=== PATIENT | male | born 1975 | race Caucasian/White ===

== ENCOUNTER 2017-02-10 16:48 | Emergency (ER) | payer SELFPAY ==
[2017-02-10 21:39] LABS: BASOPHILS 0.5 % (0.0-2.0); EOSINOPHILS 3.5 % (0-7); HEMATOCRIT 35.7 % (42.0-54.0); IMMATURE GRANULOCYTES 0.4 % (0-5); MCH 27.1 pg (26.0-34.0); MCHC 30.8 g/dL (31.0-37.0); MCV 87.9 fL (80.0-100.0); MEAN PLATELET VOLUME 11.2 fL (7.4-10.4); MONOCYTES 6.9 % (2-11); NEUTROPHILS 69.7 % (40-80); PLATELET COUNT 236 10x3/uL (130-400); RBC 4.06 10x6/uL (4.20-6.10); RDW 16.8 % (11.5-14.5); WBC 9.2 10x3/uL (4.8-10.8)
[2017-02-10 21:48] LABS: ALBUMIN 2.9 g/dL (3.4-5.0); ALKALINE PHOSPHATASE 86 U/L (46-116); ALT (SGPT) 36 U/L (10-68); BILIRUBIN - TOTAL 0.37 mg/dL (0.2-1.3); CALC OSMOLALITY 279 mosm/kg (275-300); CALCIUM 8.4 mg/dL (8.5-10.1); CARBON DIOXIDE 30.8 mmol/L (21.0-32.0); CHLORIDE - SERUM 103 mmol/L (98-107); GLUCOSE 127 mg/dL (74-106); POTASSIUM - SERUM 3.9 mmol/L (3.5-5.1); PROTEIN - SERUM 8.9 g/dL (6.4-8.2); SODIUM 139 mmol/L (136-145); UREA NITROGEN 12 mg/dL (7-18); eGFR NON AFRICAN AMERICAN 87 mL/min (90-120)
== END 2017-02-10 21:55 | disposition home or self-care (01) ==
LOC: D.ER 16:48
PROVIDERS: Surgery
DX: N49.2 Inflammatory disorders of scrotum (principal); N50.82 Scrotal pain; F41.9 Anxiety disorder, unspecified; F17.200 Nicotine dependence, unspecified, uncomplicated

== ENCOUNTER 2018-12-02 17:30 | Inpatient (IN) | payer MEDICAID ==
[~2018-12-02] VITALS: Ht 185.4 cm; Wt 209.8 kg
[2018-12-02] VITALS (10 sets, daily range): BP systolic 147–184; BP diastolic 74–114
[2018-12-02] MEDS ORDERED: COREG12.5 MG PO (17:36)
[2018-12-02] MEDS ORDERED: BUMEX2 MG PO (17:36)
[2018-12-02] MEDS ORDERED: MYCELEX TROCHE10 MG PO (17:37)
[2018-12-02] MEDS ORDERED: K-DUR20 MEQ PO (17:38)
[2018-12-02] MEDS ORDERED: ENTRESTO 24 MG1 EACH PO (17:38)
[2018-12-02] MEDS ORDERED: ALDACTONE25 MG PO (17:39)
[2018-12-02 18:15] LABS: APPEARANCE CLEAR (CLEAR); COLOR STRAW (YELLOW); SPECIFIC GRAVITY 1.015 (1.005-1.020)
--- NOTE | 2018-12-02 18:15 | NUR ---
ERP AT BEDSIDE EVALUATING PT WHEN PT HEART RATE DROPPED TO 30'S. PT PLACED ON QUICK PADS. NARCAN X 2 ADMINISTERED. PT HEART RATE INCREASED TO 70'S. PT C/O OXYGEN IN NOSE. PT QUICKLY FALLS BACK TO SLEEP. BREATHING CURRENTLY WITH OBSERVED PERIODS OF APNEA. AROUSES TO DEEP STIMULI.
[2018-12-02 18:16] LABS: BILIRUBIN NEGATIVE (NEGATIVE); GLUCOSE NEGATIVE (NEGATIVE); KETONE NEGATIVE (NEGATIVE); NITRITE NEGATIVE (NEGATIVE); PROTEIN NEGATIVE (NEGATIVE); UROBILINOGEN NORMAL (NORMAL)
[2018-12-02 18:31] LABS: BASOPHILS 0.3 % (0-2); EOSINOPHILS 2.8 % (0-7); HEMOGLOBIN 12.2 g/dL (13.5-17.5); IMMATURE GRANULOCYTES 0.4 % (0-5); MCH 27.9 pg (26.0-34.0); MCHC 31.3 g/dL (31.0-37.0); MEAN PLATELET VOLUME 11.6 fL (7.4-10.4); MONOCYTES 7.2 % (2-11); NEUTROPHILS 68.3 % (40-80); PLATELET COUNT 226 10x3/uL (130-400); RBC 4.38 10x6/uL (4.20-6.10); RDW 16.3 % (11.5-14.5); WBC 9.9 10x3/uL (4.8-10.8)
[2018-12-02 18:39] LABS: INR 1.1 (0.85-1.17); PROTIME 13.7 SECONDS (11.6-15.0)
[2018-12-02 18:54] LABS: UDS - AMPHET POSITIVE QUAL (NEGATIVE); UDS - BARB NEGATIVE QUAL (NEGATIVE); UDS - BENZO NEGATIVE QUAL (NEGATIVE); UDS - COCAINE NEGATIVE QUAL (NEGATIVE); UDS - OPIATE NEGATIVE QUAL (NEGATIVE); UDS - PCP NEGATIVE QUAL (NEGATIVE); UDS - THC NEGATIVE QUAL (NEGATIVE)
[2018-12-02 19:01] LABS: ALBUMIN 2.9 g/dL (3.4-5.0); ALKALINE PHOSPHATASE 86 U/L (46-116); ALT (SGPT) 76 U/L (10-68); CALC OSMOLALITY 282 mosm/kg (275-300); CALCIUM 8.7 mg/dL (8.5-10.1); CARBON DIOXIDE 28.6 mmol/L (21.0-32.0); CHLORIDE - SERUM 102 mmol/L (98-107); CREATININE - SERUM 0.9 mg/dL (0.6-1.3); GLUCOSE 124 mg/dL (74-106); POTASSIUM - SERUM 3.8 mmol/L (3.5-5.1); PROTEIN - SERUM 9.3 g/dL (6.4-8.2); SODIUM 140 mmol/L (136-145); UREA NITROGEN 21 mg/dL (7-18); eGFR NON AFRICAN AMERICAN > 90 mL/min (90-120)
[2018-12-02 19:12] LABS: CKMB 1.9 U/L (0.0-3.6); CREATINE KINASE 318 UL (21-232); MAGNESIUM - SERUM 1.9 mg/dL (1.8-2.4); THYROID STIMULATING HORMONE 2.39 uIU/mL (0.36-3.74)
[2018-12-02 19:19] LABS: TROPONIN-I 0.069 ng/mL (0.000-0.060)
--- NOTE | 2018-12-02 20:50 | NUR ---
PT PULLED IV OUT AT THIS TIME PT IS DIFFICULT STICK
--- NOTE | 2018-12-02 22:20 | NUR ---
PT ABLE TO STAND AT SIDE OF BED AND USE URINAL PT ALERT AND ORIENTED X 3 BUT WHEN HE LAID BACK DOWN WENT RIGHT BACK TO SLEEP. OUTPUT OF 500ML YELLOW URINE AWARE
--- NOTE | 2018-12-02 22:26 | NUR ---
UA SENT TO LAB
--- NOTE | 2018-12-02 22:30 | NUR ---
PT GIRL FRIEND AT BEDSIDE YELLING AT STAFF. MD CALLED TO BEDSIDE. PT STATES THAT SHE PUT HIS WALLET ON HIS CHEST HE WAS LEAVING WITH EMS. PT DOES NOT HAVE WALLET. PT DOES HAVE PHONE WITH MONEY SLEEVE ON THE BACK WITH CARDS. PT STATES IT IS OK TO GIVE GIRL FRIEND HIS PHONE TO TAKE HOME.
--- NOTE | 2018-12-02 23:12 | NUR ---
EMS AT [facility] [place] [place] CALLED BACK STATES THAT PT DIDNT HAVE A WALLET JUST A PHONE PT GIRL FRIEND INFORMED.
[2018-12-03] VITALS (29 sets, daily range): BP systolic 95–171; BP diastolic 33–128; Ht 185.4 cm; Wt 209.8 kg
--- NOTE | 2018-12-03 00:30 | NUR ---
PT AROUSABLE BY PAINFUL STIMULI AND THEN GOES RIGHT BACK TO SLEEP. PT C/O BEING VERY TIRED WHEN AWAKE.
--- NOTE | 2018-12-03 01:30 | NUR ---
PT RESTING EYES CLOSED RESP EVEN AND UNLABORED. PT ON MUFFLER MECHANIC AND WILL CONTINUE TO MONITOR
--- NOTE | 2018-12-03 01:52 | NUR ---
RECIEVED PT FROM [facility] CAD INTERN [place], PT LETHARGIC, ABLE TO AROUSE WITH PHYSICAL STEMULI, PT ON NC @2 L/MIN, COPELAND CATH TO GRAVITY, 20g PIV IN LEFT SHOLDER SALINE LOCK, 20gPIV IN LT WRIST SALINE LOCK, PATENT, DRSG CDI PLACED ON ICU MONITOR, SINUS RHYTHM WITH FREQUENT PVC'S, B/P ELEVATED, OTHER VS WNL, SCROTUM ENLARGED AND TENDER TO TOUCH, PENIS NOT VISIABLE AND RETRACTED, SHERINE AREA HAS SORES/WOUNDS, BILAT LOWER EXTREMITIES FROM KNEE TO FEET RED, PPP IN ALL EXTREMITIES. PT OBESE IN SIZE, WILL CONTINUE TO ASSESS
--- NOTE | 2018-12-03 02:30 | NUR ---
PT INCREASINGLY LETHARGIC AND UNABLE TO ANSWER QUESTIONS SLURRED/GARBLED SPEACH, PLACED ON BIPAP @30% OXYGEN, SPO2 OF 98%, B/P ELEVATED, NSR WITH PVC'S FREQUENTLY, HR 96bpm, PT HAS OCCASIONAL NON-PRODUCTIVE COUGH, PT GETTING SLIGHTLY AGGITATED FROM BEING WOKEN UP, REORRIENTED PT TO SITUATION AND ATTEMPT TO CALM AGGITATION, PT QUICKLY FALLS BACK ASLEEP. WILL CONTINUE TO ASSESS, COPELAND TUBING FROM CONNECTOR TO COLLECTION BAG REPLACED D/T LEAK FROM PORT, REATTACHED STAT LOCK TO LEG, VOID PATENT TO COPELAND BAG
[2018-12-03 05:00] LABS: BASOPHILS 0.3 % (0-2); EOSINOPHILS 2.8 % (0-7); HEMATOCRIT 35.2 % (42.0-54.0); IMMATURE GRANULOCYTES 0.4 % (0-5); LYMPHOCYTES 15.4 % (15-50); MCH 27.8 pg (26.0-34.0); MCHC 31.3 g/dL (31.0-37.0); MCV 89.1 fL (80.0-100.0); MEAN PLATELET VOLUME 11.9 fL (7.4-10.4); NEUTROPHILS 71.1 % (40-80); PLATELET COUNT 241 10x3/uL (130-400); RBC 3.95 10x6/uL (4.20-6.10); RDW 16.4 % (11.5-14.5); WBC 10.4 10x3/uL (4.8-10.8)
[2018-12-03 05:24] LABS: CALC OSMOLALITY 276 mosm/kg (275-300); CARBON DIOXIDE 28.9 mmol/L (21.0-32.0); CHLORIDE - SERUM 101 mmol/L (98-107); CREATININE - SERUM 0.9 mg/dL (0.6-1.3); GLUCOSE 105 mg/dL (74-106); MAGNESIUM - SERUM 1.5 mg/dL (1.8-2.4); PHOSPHOROUS 3.2 mg/dL (2.5-4.9); POTASSIUM - SERUM 3.8 mmol/L (3.5-5.1); SODIUM 138 mmol/L (136-145); UREA NITROGEN 16 mg/dL (7-18); eGFR NON AFRICAN AMERICAN > 90 mL/min (90-120)
--- NOTE | 2018-12-03 06:23 | NUR ---
DR.SANSON HARRIS, JAZMYN ALMODOVAR APN CALLED BACK, UPDATE GIVEN ON PT, INFORMED OF LABS, ALSO PT REQUESTED PAIN MED FOR UPPER TOOTH ON RT SIDE, JAZMYN STATED SHE IS UNABLE TO PROVIDE PAIN MED D/T ADMIT WITH AMS, ORDERS FOR ELECTROLYTE REPLACEMENT PROTOCOL RECEIVED, PT AAOx4 VSS, NSR WITH FREQUENT PVC'S ON CM, WILL CONTINUE TO ASSESS
[2018-12-03 07:00] LABS: VANCOMYCIN - RANDOM 6.8 ug/mL (10.0-20.0)
--- NOTE | 2018-12-03 07:00 | NUR ---
REPORT GIVEN TO DAY SHIFT RN,
--- NOTE | 2018-12-03 07:00 | NUR ---
PATIENT RESTING IN BED. BP, HR, AND O2 SAT ARE STABLE. PATIENT ON 4L O2 HIGH FLOW NC. TELEMETRY READS FREQUENT PVCS WITH OCCASIONAL RUNS OF TRIGEMINY AND BIGEMINY. ELECTROLYTE PROTOCOL BEING FOLLOWED PER NEEDS. PT AWAKE AND ALERT WHEN SPOKEN TO BUT FALLS ALSEEP FAST. ABLE TO SPEAK CLEARLY AND ANSWER QUESTIONS, THOUGH EASILY AGITATED. COPELAND CATH IN PLACE DRAINING CLEAR YELLOW CONCENTRATED URINE. SCROTUM IS VERY SWOLLEN ALONG WITH WHOLE SHERINE AREA--ALSO APPEARS INFLAMED. 20 GUAGE PIV TO LEFT WRIST AND LEFT SHOULDER. ABX AND MAGNESIUM INFUSING VIA LEFT WRIST. NURSE FLUSHED LEFT SHOULDER IV. SCD HOSE INTACT. WILL CONTINUE TO MONITOR.
[2018-12-03 07:03] LABS: TROPONIN-I 0.075 ng/mL (0.000-0.060)
--- NOTE | 2018-12-03 07:40 | NUR ---
DR. ARREGUIN CAME TO SEE PATIENT. UPDATED ON WHAT OCCURRED LAST NIGHT PER NIGHT RNMONIE. ORDERS FOR CARDIOLOGY CONSULT AND VERBAL ORDER FOR PULMONARY CONSULT.
--- NOTE | 2018-12-03 08:42 | NUR ---
PAGED DR. MCKINLEY FOR CONSULT--DR. JEAN-BAPTISTE NURSE CALLED BACK. EXPLAINED CARDIAC ISSUES TO NURSE AND SHE STATED SHE WILL LET HIM KNOW FOR ME.
--- NOTE | 2018-12-03 09:24 | NUR ---
SPOKE TO DR. PAULINO ON PHONE TO NOTIFY OF PATIENT CONSULT.
--- NOTE | 2018-12-03 10:00 | NUR ---
SPOKE TO PHARMACIST ABOUT VANCOMYCIN ORDER DUE AT 0900
--- NOTE | 2018-12-03 10:01 | NUR ---
Scrotum red and edmatous. No drainagae or weeping noted. Recommend elevating using sling.
--- NOTE | 2018-12-03 11:05 | NUR ---
DR. HENSLEY CAME BY TO SEE PATIENT. NO ORDERS GIVEN AT THIS TIME
--- NOTE | 2018-12-03 11:54 | NUR ---
SERVED LUNCH TRAY. PATIENT OFF BIPAP MACHINE ON NASAL CANULA AT 4L/MIN. VSS. SITTING UP IN BED EATING LUNCH. ALSO ADMINISTERED 0900 VANCOMYCIN DOSE. WILL FUTURE DOSES.
--- NOTE | 2018-12-03 13:15 | NUR ---
TOOK PATIENT TO CT OF ABDOMEN AT THIS TIME
--- NOTE | 2018-12-03 13:55 | NUR ---
GAVE PATIENT CHLORHEXADINE BATH. VSS.
--- NOTE | 2018-12-03 15:04 | NUR ---
PATIENT RESTING IN BED. CALL GARCIA IN REACH. NO COMPLAINTS. WILL CONTINUE TO MONITOR
--- NOTE | 2018-12-03 15:12 | NUR ---
PATIENTS SISTER AND CAME TO SEE PATIENT AND GAVE PASSWORD TO SET UP. UPDATED ON PATIENT STATUS AND PLAN OF CARE.
--- NOTE | 2018-12-03 15:59 | NUR ---
CHANGED ALL PATIENT LINENS AND REPOSITIONED IN BED. VSS. WILL CONTINUE TO MONITOR
--- NOTE | 2018-12-03 17:21 | MORECARE ---
CASE MANAGEMENT DISCHARGE SUMMARY PATIENT: SHRUTHI AMARO UNIT: [id number] ADM DATE: 12/02/18 AGE: 43 : 75 SEX: M ROOM/BED: D.2310 AUTHOR: HERMILO CURRY PHYSICIAN: REFERRING PHYSICIAN: SARKIS ARREGUIN MD DATE OF SERVICE: 12/03/18 Discharge Plan Patient Name: SHRUTHI AMARO Facility: [facility]:[place] : 1975 Planned Disposition: Home Anticipated Discharge Date: Discharge Date: Expected LOS: Initial Reviewer: [email or web address] Initial Review Date: 12/03/2018 Generated: 12/03/18 6:20 pm Patient Name: SHRUTHI AMARO Page [id number] at 1721 All edits/amendments must be made on the electronic document DICTATION DATE: 12/03/181719 DIETETIC TECH: LENCHO 12/03/181719 RPT#: [id number] DC DATE: STATUS: ADM IN [facility] [address] [place] [address] END OF REPORT
--- NOTE | 2018-12-03 17:28 | MORECARE ---
CASE MANAGEMENT DISCHARGE SUMMARY PATIENT: SHRUTHI AMARO UNIT: [id number] ADM DATE: 12/02/18 AGE: 43 : 75 SEX: M ROOM/BED: D.2310 AUTHOR: HERMILO CURRY PHYSICIAN: REFERRING PHYSICIAN: SARKIS ARREGUIN MD DATE OF SERVICE: 12/03/18 Discharge Plan Patient Name: SHRUTHI AMARO Facility: [facility]:[place] : 1975 Planned Disposition: Home Anticipated Discharge Date: Discharge Date: Expected LOS: Initial Reviewer: [email or web address] Initial Review Date: 12/03/2018 Generated: 12/03/18 6:28 pm Comments DCP- Discharge Planning Updated by [email or web address]: Lucia Gillis on 12/03/18 4:[address] Patient Name: SHRUTHI AMARO Admission Status: ER Accout number: [id number] Admission Date: 12-02-2018 : 1975 Admission Diagnosis: Attending: SARKIS ARREGUIN Current LOS: 1 Anticipated DC Date: Planned Disposition: Home Primary Insurance: MEDICAID [place] Discharge Planning Comments: CM met with patient at bedside after obtaining verbal consent. Patient states he plans on returning home after discharge. Patient states he lives alone. Patient very drowsy kept dozing off during interview. Patient denies any discharge needs at this time. CM will continue to follow and assist as needed for discharge planning / needs. Pastrycook'S Assistant: Lucia Gillis DCPIA - Discharge Planning Initial Assessment Updated by [email or web address]: Lucia Gillis on 12/03/18 5:21 pm * Is the patient Alert and Oriented? Yes * How many steps to enter\exit or inside your home? * PCP [facility] - [facility] * Pharmacy [facility] * Preadmission Environment Home Alone * ADLs Independent * Equipment None * List name and contact numbers for known caregivers / representatives who currently or will assist patient after discharge: SEBASTIAN MENDEZ - FATHER - ?? * Verbal permission to speak to the caregivers and representatives has been obtained from the patient. N/A * Community resources currently utilized None * Additional services required to return to the preadmission environment? No * Can the patient safely return to the preadmission environment? Yes * Has this patient been hospitalized within the prior 30 days at any hospital? No Last DP export: 12/03/18 4:21 pm Patient Name: SHRUTHI AMARO Page 11545 at 1728 All edits/amendments must be made on the electronic document DICTATION DATE: 12/03/181727 SPONGE FISHERMAN: LENCHO 12/03/181727 RPT#: [id number] DC DATE: STATUS: ADM IN [facility] [address] [place] [address] END OF REPORT
--- NOTE | 2018-12-03 18:00 | NUR ---
PATIENT IS RESTING IN BED C STABLE VITAL SIGNS. NO COMPLAINTS.
--- NOTE | 2018-12-03 19:30 | NUR ---
REPORT RECEIVED, SHIFT ASSESSMENT COMPLETED PER FLOW SHEET, ABLE TO WAKE PT WITH VERBAL STEMULI, PT AAO, DENIES PAIN, REPOSITIONED FOR COMFORT, HOB ELEVATED, NC @4L/MIN, ON ICU MONITORS, NSR WITH FREQUENT PVC'S NOTED, ALL OTHER VSS, PT REQUESTING SNACK AND WATER, 1 SANDWICH GIVEN AND LARGE CUP WATER, COPELAND CATH TO GRAVITY, 20g PIV IN LT WRIST INFUSING MEDS PER JAN, WILL CONTINUE TO ASSESS
--- NOTE | 2018-12-03 20:52 | NUR ---
MEDS GIVEN PER JAN/ORDERS, PLACED PT ON BIPAP @30% O2, PT TOLLERATING WELL, VSS, WILL CONTINUE TO ASSESS
--- NOTE | 2018-12-03 22:05 | NUR ---
FEMALE STATING SHE WAS PT'S "" CALLED UNIT, UNABLE TO PROVIDE CORRECT PASSWORD BECAME ANGRY AND RAISING VOICE, PT ASLEEP, ATTEMPTED TO WAKE PT AND HAD TO USE PAINFUL STEMULUI, PT AGGRESIVE AND WONT STAY AWAKE, INFORMED PT OF CALL ON PHONE.
[2018-12-04] VITALS (24 sets, daily range): BP systolic 89–148; BP diastolic 52–99
--- NOTE | 2018-12-04 02:19 | NUR ---
PT REMOVBED BIPAP, STATED HE DIDNT WANT TO WEAR IT ANYMORE, PLACED ON NC@ 4L/M.
--- NOTE | 2018-12-04 02:50 | NUR ---
PT PLACED BACK ON BIPAP PER PT REQUEST, DENIES NEEDS, VSS
[2018-12-04 04:42] LABS: CALC OSMOLALITY 281 mosm/kg (275-300); CALCIUM 7.9 mg/dL (8.5-10.1); CARBON DIOXIDE 31.8 mmol/L (21.0-32.0); CHLORIDE - SERUM 101 mmol/L (98-107); CREATININE - SERUM 1.1 mg/dL (0.6-1.3); GLUCOSE 126 mg/dL (74-106); MAGNESIUM - SERUM 1.8 mg/dL (1.8-2.4); POTASSIUM - SERUM 3.6 mmol/L (3.5-5.1); SODIUM 139 mmol/L (136-145); UREA NITROGEN 17 mg/dL (7-18); eGFR NON AFRICAN AMERICAN 78 mL/min (90-120)
[2018-12-04 04:46] LABS: BASOPHILS 0.3 % (0-2); HEMATOCRIT 34.8 % (42.0-54.0); HEMOGLOBIN 10.6 g/dL (13.5-17.5); IMMATURE GRANULOCYTES 0.4 % (0-5); MCH 27.4 pg (26.0-34.0); MCHC 30.5 g/dL (31.0-37.0); MCV 89.9 fL (80.0-100.0); MEAN PLATELET VOLUME 11.5 fL (7.4-10.4); MONOCYTES 9.2 % (2-11); NEUTROPHILS 66.1 % (40-80); PLATELET COUNT 231 10x3/uL (130-400); RBC 3.87 10x6/uL (4.20-6.10); RDW 16.6 % (11.5-14.5); WBC 7.5 10x3/uL (4.8-10.8)
--- NOTE | 2018-12-04 06:00 | NUR ---
ORDER FOR WOUND CULTURE UNCOLLECTED D/T NO OPEN SORE AT THIS TIME. SEARCH ENGINE OPTIMIZATION SPECIALIST AMANDA AWARE OF SITUATION
--- NOTE | 2018-12-04 07:00 | NUR ---
SHIFT ASSESSMENT COMPLETED, PT CARE ASSUMED. MONITORS ON AND WORKING, VITALS STABLE, PT AWAKE AND ALERT. COPELAND CATH STAT LOCKED IN PLACE, NO SIGNS/SYMPTOMS OF PAIN OR DISCOMFORT AT THIS TIME, CALL LIGHT WITHIN REACH, SEE FLOW SHEET FOR FURTHER DETAILS. WILL CONTINUE TO OBSERVE.
--- NOTE | 2018-12-04 09:00 | NUR ---
PT SITTING UP IN BED EATING BREAKFAST. PT DENIES ANY COMPLAINT OF PAIN OR DISCOMFORT AT THIS TIME. CALL LIGHT WITHIN REACH, WILL CONTINUE TO OBSERVE.
--- NOTE | 2018-12-04 11:00 | NUR ---
NO CHANGES, MONITORS ON AND WORKING, VITALS STABLE. SEE FLOW SHEET FOR FURTHER DETIALS. WILL CONTINUE TO OBSERVE. CALL LIGHT WITHIN REACH.
--- NOTE | 2018-12-04 13:00 | NUR ---
PT SITTING UP IN BED, VITALS STABLE, PT AWAKE AND ALERT. NO SIGNS/SYMPTOMS OF PAIN OR DISCOMFORT NOTED AT THIS TIME. CALL LIGHT WITHIN REACH, WILL CONTINUE TO OBSERVE.
--- NOTE | 2018-12-04 15:00 | NUR ---
NO CHANGES, PT AWAKE AND ALERT, VITALS STABLE, CALL LIGHT WITHIN REACH, SEE FLOW SHEET FOR FURTHER DETIALS. WILL CONTINUE TO OBSERVE.
--- NOTE | 2018-12-04 17:00 | NUR ---
PT RESTING IN BED, VITALS STABLE. NO CHANGES, CALL LIGHT WITHIN REACH. WILL CONTINUE TO OBSERVE.
--- NOTE | 2018-12-04 19:41 | NUR ---
REPORT RECEIVED, SHIFT ASSESSMENT COMPLETED PER FLOW SHEET. ALERT AND ORIENTEDX4. FOLLOWS COMMANDS. MOVES ALL EXTREMITIES. LT WRIST PIV, PATENT, NO SIGNS OF INFECTION OR INFILTRATION. PPP. DENIES NEEDS. CALL LIGHT WITHIN REACH. WILL CONTINUE TO MONITOR.
--- NOTE | 2018-12-04 19:45 | CN ---
PATIENT NAME:SHRUTHI SHAH MEDICAL RECORD: [id number] : 75 LOCATION:AUTUMN.2310 ADMIT DATE: 12/02/18 ACCOUNT: [id number] CONSULTING PHYSICIAN: NITZA PAULINO MD REFERRING PHYSICIAN: ANNI ARREGUIN MD DATE OF CONSULTATION: 12/03/2018 CONSULT REQUESTING PHYSICIAN: Anni Arreguin MD REASON FOR CONSULTATION: Altered mental status, pulmonary edema, acute hypoxic hypercapnic respiratory failure. HISTORY OF PRESENT ILLNESS: Mr. Shah is a 43-year-old gentleman who was brought into the hospital with mental status changes. He was also in respiratory distress. The patient was sleepy, but he was given 2 doses of Narcan. The patient is a bit more awake and alert today. He has scrotal abscess and infection, which he has for long time, and the patient has left the hospital AMA several times without completing the course of antibiotic. Dr. Rider has been consulted for the scrotal cellulitis. REVIEW OF THE SYSTEMS: As in history of present illness. PAST MEDICAL HISTORY: 1. Obstructive sleep apnea. 2. Congestive heart failure. 3. Scrotal infection. 4. Morbid obesity. 5. Recreation drug abuse. ALLERGY: HE IS ALLERGIC TO SULFA AND CLINDAMYCIN. MEDICATIONS: Service Route was reviewed. PERSONAL AND SOCIAL HISTORY: The patient is an ex-smoker. He is nondrinker. He was using recreational drugs. FAMILY HISTORY: Noncontributory. PHYSICAL EXAMINATION: GENERAL: Now, the patient is a bit more awake and alert. He is not in acute distress. VITAL SIGNS: The blood pressure is 141/82, pulse is 99, respiration is 18, temperature is 97.9, and SpO2 is 99% on 30% BiPAP. HEENT: Conjunctivae are pink. Sclerae are nonicteric. NECK: Neck is supple. No JVD. CHEST: There are bilateral crackles. No wheezing. HEART: Rhythm regular. Normal sound. No murmur. ABDOMEN: Abdomen is soft. Bowel sounds present. No hepatosplenomegaly. RECTAL: Deferred. EXTREMITIES: No cyanosis. No clubbing. No pedal edema. There is scrotal swelling and cellulitis. CENTRAL NERVOUS SYSTEM: There is no obvious cranial nerve abnormality. The patient is more awake and alert. LABORATORY DATA: ABG; the pH is 7.29, pCO2 is 64.2, pO2 is 129, and bicarb is CONSULT REPORT [id number] SHRUTHI SHAH 31. CBC; WBC 9.9, hemoglobin 12.2, hematocrit 39, and platelet count is 226. Chemistry; sodium 140, potassium 3.8, chloride 102, bicarb is 28.6. BUN is 21, and creatinine 0.9. DIAGNOSTIC DATA: Chest radiograph with increased interstitial marking bilaterally. IMPRESSION: 1. Acute hypoxic hypercapnic respiratory failure. 2. Respiratory acidosis. 3. Narcotic overdose. 4. Pulmonary edema. 5. Cellulitis of the scrotum and abscess. 6. CHF, possible chronic diastolic dysfunction. 7. Elevated cardiac enzyme. Rule out acute NV. RECOMMENDATION: 1. Continue the BiPAP. 2. Diuresis. 3. Continue Zosyn and vancomycin. 4. Dr. Rider is consulted. 5. Cardiology is on the board. 6. Continue BiPAP machine at night and during the day when the patient is sleepy. Follow up labs and chest radiograph. 7. DVT prophylaxis. Discussed with RN and RT. The critical care time is 45 minutes. TRANSINT:[id number] Voice Confirmation ID: [id number] DOCUMENT ID: [id number] NITZA PAULINO MD at 1945 CC: [id number] DICTATION DATE: 12/03/18 1613 MANUFACTURING MANAGEMENT ASSOCIATE: 12/03/18 1837 ADM IN [facility] [address] [place] [id number]
--- NOTE | 2018-12-04 21:13 | NUR ---
SCHEDULED MEDS GIVEN, WATER WITH ICE PROVIDED. DENIES NEEDS. CALL LIGHT WITHIN REACH.
--- NOTE | 2018-12-04 23:08 | NUR ---
REASSESSMENT COMPLETED PER FLOW SHEET, SEE FOR DETAILS. NO ACUTE CHANGES NOTED. WATER WITH ICE PROVIDED. PPP. BIPAP AT 30% PLACED BY RT. DENIES OTHER NEEDS. CALL LIGHT WITHIN REACH. WILL CONTINUE TO MONITOR.
[2018-12-05] VITALS (14 sets, daily range): BP systolic 98–161; BP diastolic 56–95
--- NOTE | 2018-12-05 01:04 | NUR ---
CALL LIGHT ANSWERED, WATER WITH ICE PROVIDED.
--- NOTE | 2018-12-05 03:27 | NUR ---
REASSESSMENT COMPLETED PER FLOW SHEET, SEE FOR DETAIS. BIPAP REMOVED AND [place] PROVIDED PER PATIENT'S REQUEST, BIPAP PLACED BACK. DENIES OTHER NEEDS. WILL CONTINUE TO MONITOR.
[2018-12-05 04:35] LABS: HEMATOCRIT 36.7 % (42.0-54.0); HEMOGLOBIN 11.8 g/dL (13.5-17.5); LYMPHOCYTES 21.5 % (15-50); MCHC 32.2 g/dL (31.0-37.0); MEAN PLATELET VOLUME 11.3 fL (7.4-10.4); NEUTROPHILS 69.7 % (40-80); PLATELET COUNT 236 10x3/uL (130-400); RBC 4.21 10x6/uL (4.20-6.10); RDW 15.7 % (11.5-14.5); WBC 7.2 10x3/uL (4.8-10.8)
[2018-12-05 04:36] LABS: MCV 87.2 fL (80.0-100.0)
[2018-12-05 04:43] LABS: CALC OSMOLALITY 286 mosm/kg (275-300); CARBON DIOXIDE 33.6 mmol/L (21.0-32.0); CHLORIDE - SERUM 102 mmol/L (98-107); CREATININE - SERUM 1.1 mg/dL (0.6-1.3); GLUCOSE 134 mg/dL (74-106); MAGNESIUM - SERUM 1.7 mg/dL (1.8-2.4); POTASSIUM - SERUM 3.8 mmol/L (3.5-5.1); SODIUM 142 mmol/L (136-145); UREA NITROGEN 17 mg/dL (7-18); eGFR NON AFRICAN AMERICAN 78 mL/min (90-120)
--- NOTE | 2018-12-05 05:01 | NUR ---
RESTING, DENIES NEEDS, WILL CONTINUE TO MONITOR.
--- NOTE | 2018-12-05 07:00 | NUR ---
SHIFT ASSESSMENT COMPLETED, PT CARE ASSUMED, MONITORS ON AND WORKING, VITALS STABLE. PT AWAKE AND ALERT, DENIES ANY COMPLAINT OF PAIN OR DISCOMFORT AT THIS TIME. COPELAND STAT LOCKED IN PLACE, CALL LIGHT WITHIN REACH. WILL CONTINUE TO OBSERVE.
--- NOTE | 2018-12-05 09:00 | NUR ---
PT SITTING UP EATING BREAKFAST, MONITORS ON AND WORKING, VITALS STABLE. CALL LIGHT WITHIN REACH. WILL CONTINUE TO OBSERVE.
--- NOTE | 2018-12-05 09:34 | NUR ---
NUTRITION F/U PT CURRENTLY SLEEPING, BREAKFAST TRAY AT BEDSIDE. WILL CONTINUE TO PROVIDE DIET, HONOR FOOD PREFERNCES. RD FOLLOWING
--- NOTE | 2018-12-05 11:00 | NUR ---
PT RESTING IN BED, VITALS STABLE. TRANSFERS ORDERS REC'D. WILL MOVE TO MED SURG WHEN BED BECOMES AVAILABLE. CALL LIGHT WITHIN REACH, WILL CONTINUE TO OBSERVE.
--- NOTE | 2018-12-05 13:30 | EC ---
PATIENT:SHRUTHI AMARO DATE OF SERVICE: 12/02/18 SEX: M MEDICAL RECORD: [id number] DATE OF : [birth year] LOCATION:[place] [address] AGE OF PATIENT: 43 ADMISSION DATE: 12/02/18 REFERRING PHYSICIAN: INTERPRETING PHYSICIAN: JUAN RAMON OLSON MD ECHOCARDIOGRAM REPORT ECHO CHARGES 4 ECHO COMPLETE Date: 12/03/18 CLINICAL DIAGNOSIS: CHF ECHOCARDIOGRAPHIC MEASUREMENTS (adult normal given) AC root (d.<3.7cm) 3.6 cm LV Septum d (<1.2 cm> 1.5 cm Valve Excursion 1.7 cm LV Septum (systole) 1.6 cm Left Atria (s.<4.0cm> 5.9 cm LVPW d(<1.2cm) 1.7 cm RV (d.<2.3cm) 4.3 cm LVPW (sytole) 2.1 cm LV diastole(<5.6CM) 6.6 cm MV E-F(>70mm/sec) cm LV systole 5.4 cm LVOT Diameter 2.1 cm MV exc.(>10mm) 1.7 cm Est.ejection fraction (50-75%) % DOPPLER: LVIT cm/sec A 108 cm/sec E cm/sec LA cm/sec RVSP 33 mmHg LVOT 86 cm/sec AOP1/2T m/s Asc. Ao 164 cm/sec RVOT 95 cm/sec RA cm/sec PA 142 cm/sec AV Gradient Peak 10.71mmHg AV Mean 6.59 mmHg AV Area 2.3 cm MV Gradient Peak 7.40 mmHg MV Mean 3.18 mmHg MV Area cm COMMENTS: Bulb Farmworker: 2 JACINTO PAUL Kiss Setter Hand: 3 Dr. Contreras TAPE# PACS Pericardial Effusion N DATE OF SERVICE: FINDINGS: Adequate 2D, color flow, spectral Doppler, and M-Mode. LVH is present. LV internal dimension is dilated. LV is globally hypokinetic with reduced EF, estimated EF 30% to 35%. Aortic valve is tricuspid. No evidence of stenosis on Doppler interrogation. Left atrium is dilated. Mitral valve shows no prolapse. Trace MR. Right sided chambers grossly normal. Trace TR. TRANSINT:[id number] Voice Confirmation ID: [id number] DOCUMENT ID: [id number] ECHOCARDIOGRAM REPORT [id number] SHRUTHI AMARO JUAN RAMON OLSON MD at 1330 CC: [id number] DICTATION DATE: 12/04/18827 CLIENT TECHNOLOGIES ANALYST: 12/04/18 1006 ADM IN [place] [id number] [place] [id number]
--- NOTE | 2018-12-05 13:30 | CN ---
PATIENT NAME:SHRUTHI AMARO MEDICAL RECORD: [id number] : 75 LOCATION:[id number] ADMIT DATE: 12/02/18 ACCOUNT: [id number] CONSULTING PHYSICIAN: JUAN RAMON OLSON MD REFERRING PHYSICIAN: SARKIS ARREGUIN MD DATE OF CONSULTATION: 12/03/2018 HISTORY OF PRESENT ILLNESS: A 43-year-old with history of cardiomyopathy. I saw in clinic previously, not seen in quite some time. Apparently has been having issues off and on drug abuse in the past year. He was admitted with decreased level of consciousness and scrotal abscess. Currently, he is somewhat responsive to stimuli. He is noted to have frequent PVCs. No history of coronary disease was found at the time of his diagnosis of initial presentation with cardiomyopathy. We are asked to see him concerning his cardiovascular status. PAST MEDICAL HISTORY: 1. History of hypertension. 2. Cardiomyopathy. ALLERGIES: SULFA AND CLINDAMYCIN. MEDICATIONS: Include Bumex 2 mg p.o. b.i.d., carvedilol 12.5 mg p.o. b.i.d., Entresto 24/26 one tablet b.i.d., Aldactone 25 every day. SOCIAL HISTORY: Nonsmoker. Does have a history of recreational drug use, currently on disability. Urine screen positive for amphetamine. REVIEW OF SYSTEMS: Unobtainable. PHYSICAL EXAMINATION: GENERAL: Mildly responsive, no acute distress. VITAL SIGNS: Blood pressure 159/106, pulse 98 and regular. HEENT: Normocephalic, atraumatic. NECK: No bruits are noted. HEART: Regular. Heart tones are distant. I do not hear an obvious S3. LUNGS: Diminished air excursion. ABDOMEN: Soft, nontender. EXTREMITIES: A 2+ pulses. A 1 to 2+ edema. DIAGNOSTIC DATA: ECG shows left axis deviation, this is unchanged from previous. As noted previously in my clinic note, he does have frequent PVCs. IMPRESSION: Cardiomyopathy. This is nonischemic. Suspect elevated trop. It is more of a strain type pattern. We will continue cardiomyopathic medications. Recheck echocardiographic study. Further recommendations based on above. TRANSINT:[id number] Voice Confirmation ID: [id number] DOCUMENT ID: [id number] CONSULT REPORT [id number] SHRUTHI AMARO JUAN RAMON OLSON MD at 1330 CC: [id number] DICTATION DATE: 12/03/18 1126 COTTON HEADER: 12/03/18 1159 ADM IN [place] [id number] [facility]
--- NOTE | 2018-12-05 14:00 | NUR ---
PT AOX4 RESP EVEN AND NONLABORED PT DENIES NEEDS AT THIS TIME IV TO LEFT WRIST PATENT AND INTACT AT THIS TIME SRX2 BED AT LOWEST SETTTING CALL LIGHT WITHIN REACH WILL CONTINUE TO MONITOR
[2018-12-06 01:11] VITALS: BP 121/75
--- NOTE | 2018-12-06 02:11 | NUR ---
PATIENT HAD REMOVED BI PAP AFTER IT HAD BEEN PLACED. THIS STAFF STOPED THE ALARM, FINISHED WHAT NEEDED TO BE DONE. ALARM WENT OFF AGAIN PLACED ON STANDBY AND INFORMED PATIENT THAT I WOULD CALL RESPTORY AND LET THEM KNOW HE DID NOT WANT IT ON BUT , I NEEDED TO TAKE CARE OF [facility] PATIENT AJ, BEFORE THIS NURSE AND FINISHED IN THE OTHER ROOM SYLVAIN WAS YELLING NURSE AND STATED YOU STUPED BITCH GET IN HER THIS [facility] CAME TO PATIENT S ROOM AND ASK WHAT HE NEEDED HE STATED FIX THAT FUCKING THING YOU STAUPID BITCH PATIENT WAS EDUCATED THAT WE DO NOT TALK TO STAFF LIKE THAT. THAT HE HAD BEEN INFORED THAT IT WOULD BE A FEW MIN. AND I HAD NOT COMPLETED IN THE OTHER ROOM YET. BUT WOULD CALL SOON I WAS THROUGH HE STARTED YELLING THAT IT HAD BEEN OVER HALF AN HOUR EDUCATED PATIENT THAT IT HAD NOT BEED THAT LONG AND BI PAP WAS PLACED ON STANDBY AGAIN [facility] STAFF CALLED RESPITORY AND THEY CAMED AND ASSISTED WITH BIPAP.
--- NOTE | 2018-12-06 02:52 | NUR ---
RESTING IN BED NO S/S OD DISTRESS CALL LIGHT IN REACH.
[2018-12-06 05:28] LABS: CALC OSMOLALITY 283 mosm/kg (275-300); CARBON DIOXIDE 33.6 mmol/L (21.0-32.0); CHLORIDE - SERUM 103 mmol/L (98-107); GLUCOSE 107 mg/dL (74-106); MAGNESIUM - SERUM 1.6 mg/dL (1.8-2.4); POTASSIUM - SERUM 3.3 mmol/L (3.5-5.1); SODIUM 142 mmol/L (136-145); UREA NITROGEN 15 mg/dL (7-18); eGFR NON AFRICAN AMERICAN 87 mL/min (90-120)
[2018-12-06 05:30] LABS: BASOPHILS 0.3 % (0-2); EOSINOPHILS 4.2 % (0-7); HEMATOCRIT 36.7 % (42.0-54.0); HEMOGLOBIN 11.4 g/dL (13.5-17.5); IMMATURE GRANULOCYTES 0.3 % (0-5); LYMPHOCYTES 19.9 % (15-50); MCH 27.6 pg (26.0-34.0); MCHC 31.1 g/dL (31.0-37.0); MCV 88.9 fL (80.0-100.0); MEAN PLATELET VOLUME 11.7 fL (7.4-10.4); NEUTROPHILS 66.3 % (40-80); PLATELET COUNT 261 10x3/uL (130-400); RBC 4.13 10x6/uL (4.20-6.10); RDW 16.5 % (11.5-14.5); WBC 7.8 10x3/uL (4.8-10.8)
[2018-12-06 09:35] VITALS: BP 116/70
--- NOTE | 2018-12-06 10:54 | NUR ---
PT RESTING IN BED. NO SIGNS OF DISTRESS. IV TO LEFT HAND. TENDER NEEDS TO BE RESITED. SCROTOM/PERNIAL IS SWOLLEN. HAS COPELAND PATENT NO KINKS. COMPLAINS OF A BAD NIGHT AND HAS AGGITATION THIS AM. DENIES ANY OTHER NEED AT THIS TIME. CALL LIGHT IN REACH. BED LOW POSITION. NO FAMILY AT BEDSIDE.
--- NOTE | 2018-12-06 12:00 | NUR ---
DR MCKINLEY PAGED. PT HEART RATE ON MACHINE WAS 44. DR MCKINLEY REQUESTED A STAT EKG. EKG RESULTS SHOWED 85 NORMAL SINUS WITH PVCS. DR MCKINLEY STATED THAT THE PVCS WERE CAUSING HIS HEART RATE TO SHOW LIKE THAT ON THE MONITORS. DENIES ANY SYMPTOMS. DENIES ANY OTHER NEED AT THIS TIME. CALL LIGHT IN REACH. BED LOW POSITION. NO FAMILY AT BEDSIDE AT THIS TIME.
[2018-12-06 14:13] VITALS: BP 141/65
[2018-12-06 15:42] VITALS: BP 158/75
[2018-12-06 21:28] VITALS: BP 136/91
[2018-12-07 00:29] VITALS: BP 132/90
[2018-12-07 06:32] LABS: BASOPHILS 0.3 % (0-2); EOSINOPHILS 4.6 % (0-7); HEMATOCRIT 36.9 % (42.0-54.0); HEMOGLOBIN 11.6 g/dL (13.5-17.5); IMMATURE GRANULOCYTES 0.1 % (0-5); LYMPHOCYTES 20.2 % (15-50); MCH 27.8 pg (26.0-34.0); MCHC 31.4 g/dL (31.0-37.0); MCV 88.5 fL (80.0-100.0); MEAN PLATELET VOLUME 11.7 fL (7.4-10.4); MONOCYTES 8.4 % (2-11); NEUTROPHILS 66.4 % (40-80); PLATELET COUNT 266 10x3/uL (130-400); RBC 4.17 10x6/uL (4.20-6.10); RDW 16.6 % (11.5-14.5); WBC 7.8 10x3/uL (4.8-10.8)
[2018-12-07 06:58] LABS: CALC OSMOLALITY 279 mosm/kg (275-300); CALCIUM 8.2 mg/dL (8.5-10.1); CARBON DIOXIDE 31.8 mmol/L (21.0-32.0); CHLORIDE - SERUM 101 mmol/L (98-107); CREATININE - SERUM 0.9 mg/dL (0.6-1.3); GLUCOSE 89 mg/dL (74-106); MAGNESIUM - SERUM 1.8 mg/dL (1.8-2.4); POTASSIUM - SERUM 3.7 mmol/L (3.5-5.1); SODIUM 141 mmol/L (136-145); UREA NITROGEN 13 mg/dL (7-18); eGFR NON AFRICAN AMERICAN > 90 mL/min (90-120)
--- NOTE | 2018-12-07 08:14 | NUR ---
PT ALERT X 4. BREATH SOUNDS CLEAR BILAT. IV TO RIGHT UPPER ARM, PATENT, DRESSING CLEAN DRY AND INTACTL. SWELLING OF SCROTUM AND PENIS. SCABS AND SORES TO FOLD OF LOWER ABDOMEN AND SCROTAL AREA. COPELAND IN PLACE, URINE DARK YELLOW AND CLOUDY WITH SEDIMENT. PAIN OF 5/10, WILL MONITOR. BED LOW, CALL LIGHT IN REACH, NO OTHER NEEDS AT THIS TIME.
[2018-12-07 09:09] VITALS: BP 147/95
[2018-12-07 13:15] VITALS: BP 134/85
[2018-12-08 07:05] LABS: BASOPHILS 0.3 % (0-2); HEMATOCRIT 37.8 % (42.0-54.0); IMMATURE GRANULOCYTES 0.3 % (0-5); LYMPHOCYTES 21.8 % (15-50); MCHC 31.7 g/dL (31.0-37.0); MCV 88.1 fL (80.0-100.0); MEAN PLATELET VOLUME 11.5 fL (7.4-10.4); MONOCYTES 8.3 % (2-11); NEUTROPHILS 65.3 % (40-80); PLATELET COUNT 249 10x3/uL (130-400); RBC 4.29 10x6/uL (4.20-6.10); RDW 16.4 % (11.5-14.5); WBC 7.8 10x3/uL (4.8-10.8)
[2018-12-08 07:43] LABS: CALC OSMOLALITY 280 mosm/kg (275-300); CALCIUM 8.4 mg/dL (8.5-10.1); CARBON DIOXIDE 29.3 mmol/L (21.0-32.0); CHLORIDE - SERUM 103 mmol/L (98-107); CREATININE - SERUM 0.9 mg/dL (0.6-1.3); GLUCOSE 99 mg/dL (74-106); MAGNESIUM - SERUM 1.9 mg/dL (1.8-2.4); POTASSIUM - SERUM 4.2 mmol/L (3.5-5.1); SODIUM 141 mmol/L (136-145); UREA NITROGEN 13 mg/dL (7-18); eGFR NON AFRICAN AMERICAN > 90 mL/min (90-120)
--- NOTE | 2018-12-08 07:45 | NUR ---
PT ALERT X 4. BREATH SOUNDS CLEAR BILAT, SHALLOW. IV TO RIGHT WRIST, PATENT, DRESSING CLEAN DRY AND INTACT. BOWEL SOUNDS HYPOACTIVE TO ALL CANDELARIA. SCROTUM AND PENIS SWOLLEN AND RED. +2 EDEMA TO BLE. COPELAND IN PLACE, URINE DARK YELLOW AND CLOUDY WITH SEDIMENT. BED LOW, CALL LIGHT IN REACH, NO OTHER NEEDS AT THIS TIME.
[2018-12-08 08:00] VITALS: BP 150/107
--- NOTE | 2018-12-08 16:26 | NUR ---
PT REMOVED OWN IV FROM RIGHT WRIST, TIP INTACT. COPELAND REMOVED. DISCHARGE PAPERWORK SIGNED, ALL QUESTIONS ANSWERED.
--- NOTE | 2018-12-08 17:23 | MORECARE ---
CASE MANAGEMENT DISCHARGE SUMMARY PATIENT: SHRUTHI AMARO UNIT: [id number] ADM DATE: 12/02/18 AGE: 43 : 75 SEX: M ROOM/BED: D.2202 AUTHOR: HERMILO CURRY PHYSICIAN: REFERRING PHYSICIAN: SARKIS ARREGUIN MD DATE OF SERVICE: 12/08/18 Discharge Plan Patient Name: SHRUTHI AMARO Facility: [facility]:[place] : 1975 Planned Disposition: Home Anticipated Discharge Date: Discharge Date: 12/08/2018 Expected LOS: Initial Reviewer: [email or web address] Initial Review Date: 12/03/2018 Generated: 12/08/18 6:23 pm Comments DCP- Discharge Planning Updated by [email or web address]: Aparna Mathew on 12/08/18 4:[address] LATE ENTRY 1500 SHIPPING LEAD ADVISED CM AND DIGITAL OPERATIONS ANALYST THAT PATIENT DECLINED HOME HEALTH SERVICES. DCP- Discharge Planning Updated by [email or web address]: Lucia Gillis on 12/03/18 4:[address] Patient Name: SHRUTHI AMARO Admission Status: ER Accout number: [id number] Admission Date: 12-02-2018 : 1975 Admission Diagnosis: Attending: SARKIS ARREGUIN Current LOS: 1 Anticipated DC Date: Planned Disposition: Home Primary Insurance: MEDICAID [place] Discharge Planning Comments: CM met with patient at bedside after obtaining verbal consent. Patient states he plans on returning home after discharge. Patient states he lives alone. Patient very drowsy kept dozing off during interview. Patient denies any discharge needs at this time. CM will continue to follow and assist as needed for discharge planning / needs. Engineer And Geologist: Lucia Gillis DCPIA - Discharge Planning Initial Assessment Updated by [email or web address]: Lucia Gillis on 12/03/18 5:21 pm * Is the patient Alert and Oriented? Yes * How many steps to enter\exit or inside your home? * PCP [facility] - [facility] * Pharmacy [facility] * Preadmission Environment Home Alone * ADLs Independent * Equipment None * List name and contact numbers for known caregivers / representatives who currently or will assist patient after discharge: SEBASTIAN MENDEZ - FATHER - ?? * Verbal permission to speak to the caregivers and representatives has been obtained from the patient. N/A * Community resources currently utilized None * Additional services required to return to the preadmission environment? No * Can the patient safely return to the preadmission environment? Yes * Has this patient been hospitalized within the prior 30 days at any hospital? No Last DP export: 12/03/18 4:28 pm Patient Name: SHRUTHI AMARO Page [id number] at 1723 All edits/amendments must be made on the electronic document DICTATION DATE: 12/08/181721 REVENUE CYCLE CONSULTANT: LENCHO 12/08/181721 RPT#: [id number] DC DATE:12/08/18 STATUS: DIS IN [facility] [address] [place] [address] END OF REPORT
--- NOTE | 2018-12-09 09:12 | MORECARE ---
CASE MANAGEMENT DISCHARGE SUMMARY PATIENT: SHRUTHI AMARO UNIT: [id number] ADM DATE: 12/02/18 AGE: 43 : 75 SEX: M ROOM/BED: D.2202 AUTHOR: HERMILO CURRY PHYSICIAN: REFERRING PHYSICIAN: SARKIS ARREGUIN MD DATE OF SERVICE: 12/09/18 Discharge Plan Patient Name: SHRUTHI AMARO Facility: [facility]:[place] : 1975 Planned Disposition: Home Anticipated Discharge Date: Discharge Date: 12/08/2018 Expected LOS: 0 Initial Reviewer: [email or web address] Initial Review Date: 12/03/2018 Generated: 12/09/18 10:12 am Comments DCP- Discharge Planning Updated by [email or web address]: Aparna Mathew on 12/08/18 4:[address] LATE ENTRY 1500 WAX PUMPER ADVISED CM AND ASSEMBLER TRUCK TRAILER THAT PATIENT DECLINED HOME HEALTH SERVICES. DCP- Discharge Planning Updated by [email or web address]: Lucia Gillis on 12/03/18 4:[address] Patient Name: SHRUTHI AMARO Admission Status: ER Accout number: [id number] Admission Date: 12-02-2018 : 1975 Admission Diagnosis: Attending: SARKIS ARREGUIN Current LOS: 1 Anticipated DC Date: Planned Disposition: Home Primary Insurance: MEDICAID [place] Discharge Planning Comments: CM met with patient at bedside after obtaining verbal consent. Patient states he plans on returning home after discharge. Patient states he lives alone. Patient very drowsy kept dozing off during interview. Patient denies any discharge needs at this time. CM will continue to follow and assist as needed for discharge planning / needs. Music Department Chair: Lucia Gillis DCPIA - Discharge Planning Initial Assessment Updated by [email or web address]: Lucia Gillis on 12/03/18 5:21 pm * Is the patient Alert and Oriented? Yes * How many steps to enter\exit or inside your home? * PCP [facility] * Pharmacy [facility] * Preadmission Environment Home Alone * ADLs Independent * Equipment None * List name and contact numbers for known caregivers / representatives who currently or will assist patient after discharge: LAWPETER MENDEZ - FATHER - ?? * Verbal permission to speak to the caregivers and representatives has been obtained from the patient. N/A * Community resources currently utilized None * Additional services required to return to the preadmission environment? No * Can the patient safely return to the preadmission environment? Yes * Has this patient been hospitalized within the prior 30 days at any hospital? No Last DP export: 12/08/18 4:23 p Patient Name: SHRUTHI AMARO Page [id number] at 0912 All edits/amendments must be made on the electronic document DICTATION DATE: 12/09/18911 RAZOR GRINDER: LENCHO 12/09/18911 RPT#: [id number] DC DATE:12/08/18 STATUS: DIS IN [facility] [address] [place] [address] END OF REPORT
== END 2018-12-08 16:36 | disposition home or self-care (01) | DRG 917 ==
LOC: D.ER 17:30 → D.EDHOLD 23:53 → D.MS 23:53 → D.ICU 23:53 → D.MS 12-03 00:22 → D.ICU 12-03 00:38 → D.MS 12-05 14:10
PROVIDERS: Family Medicine; Internal Medicine Pulmonary Disease; ADMIT Family Medicine
PROC: 5A09357 Assistance with Respiratory Ventilation, Less than 24 Consecutive Hours, Continuous Positive Airway Pressure (ICD-10-PCS; principal; 2018-12-02)
DX: T50.901A Poisoning by unspecified drugs, medicaments and biological substances, accidental (unintentional), initial encounter (principal); J96.01 Acute respiratory failure with hypoxia; J96.02 Acute respiratory failure with hypercapnia; R40.2223 Coma scale, best verbal response, incomprehensible words, at hospital admission; I42.9 Cardiomyopathy, unspecified; E87.2 Acidosis; Z68.44 Body mass index [BMI] 60.0-69.9, adult; N49.2 Inflammatory disorders of scrotum; F15.10 Other stimulant abuse, uncomplicated; E66.01 Morbid (severe) obesity due to excess calories; G47.33 Obstructive sleep apnea (adult) (pediatric); Z91.19 Patient's noncompliance with other medical treatment and regimen; I11.0 Hypertensive heart disease with heart failure; I50.9 Heart failure, unspecified

== ENCOUNTER 2019-01-24 00:13 | Emergency (ER) | payer MEDICAID ==
[~2019-01-24] VITALS: Ht 185.4 cm; Wt 204.1 kg
[~2019-01-24 00:13] MED LIST: ALDACTONE25 MG PO; BUMEX2 MG PO; COREG12.5 MG PO; ENTRESTO 24 MG1 EACH PO; K-DUR20 MEQ PO; MYCELEX TROCHE10 MG PO
[2019-01-24 00:16] VITALS: BP 129/87; Ht 185.4 cm; Wt 204.1 kg
[2019-01-24 00:46] LABS: HEMATOCRIT 45.3 % (42.0-54.0); HEMOGLOBIN 13.4 g/dL (13.5-17.5); MCH 26.3 pg (26.0-34.0); MCHC 29.6 g/dL (31.0-37.0); MCV 88.8 fL (80.0-100.0); MEAN PLATELET VOLUME 10.5 fL (7.4-10.4); RDW 17.2 % (11.5-14.5); WBC 10.9 10x3/uL (4.8-10.8)
[2019-01-24 00:47] LABS: PLATELET COUNT 314 10x3/uL (130-400)
[2019-01-24 01:14] LABS: APTT 28.3 SECONDS (22.8-39.4); INR 1.34 (0.85-1.17); PROTIME 16.1 SECONDS (11.6-15.0)
[2019-01-24 01:19] LABS: ALBUMIN 2.5 g/dL (3.4-5.0); ALKALINE PHOSPHATASE 143 U/L (46-116); ALT (SGPT) 21 U/L (10-68); CALC OSMOLALITY 273 mosm/kg (275-300); CALCIUM 8.2 mg/dL (8.5-10.1); CARBON DIOXIDE 29.2 mmol/L (21.0-32.0); CHLORIDE - SERUM 98 mmol/L (98-107); CREATININE - SERUM 1.2 mg/dL (0.6-1.3); GLUCOSE 113 mg/dL (74-106); POTASSIUM - SERUM 4.9 mmol/L (3.5-5.1); PROTEIN - SERUM 9.6 g/dL (6.4-8.2); SODIUM 134 mmol/L (136-145); UREA NITROGEN 26 mg/dL (7-18); eGFR NON AFRICAN AMERICAN 70 mL/min (90-120)
[2019-01-24 01:32] LABS: CKMB 1.4 U/L (0.0-3.6); CREATINE KINASE 87 UL (21-232); PRO BNP 2088 pg/mL (0-125); TROPONIN-I 0.024 ng/mL (0.000-0.060)
[2019-01-24 01:36] LABS: EOSINOPHILS 1 % (0-7); LYMPHOCYTES 19 % (15-50); MONOCYTES 10 % (2-11); NEUTROPHILS 70 % (40-80); PLATELET ESTIMATE NORMAL
== END 2019-01-24 04:29 ==
LOC: D.ER 00:13
PROVIDERS: Family Medicine
DX: J96.92 Respiratory failure, unspecified with hypercapnia (principal); J96.91 Respiratory failure, unspecified with hypoxia; E87.2 Acidosis; I46.9 Cardiac arrest, cause unspecified; J44.1 Chronic obstructive pulmonary disease with (acute) exacerbation; R60.1 Generalized edema